=== PATIENT | male | born 1950 | race African-American/Black ===

== ENCOUNTER → 2021-01-17 | Day surgery (SDC) | payer OTHER ==
[~2021-01-17] MED LIST: TYLENOL325 MG PO
--- NOTE | ~2021-01-17 | OP ---
[facility] [address] [place] [address] OPERATIVE REPORT Name: OLI REY Room: [facility].#: [id number] Admission: 01/17/21 Attend Phys: Simone Guillermo Discharge: Date of : 54 Report #: [id number] THIS REPORT FOR: cc: Darcy Hernandez Ghaison F. DO Patterson, Jonathan D. MD ~ DATE OF SURGERY: 01/17/2021 PREOPERATIVE DIAGNOSIS: Right axillary hidradenitis suppurativa. POSTOPERATIVE DIAGNOSIS: Right axillary hidradenitis suppurativa. OPERATION: Excision of right axillary hidradenitis suppurativa, simple. SURGEON: Simone Guillermo MD ANESTHESIA: General. ESTIMATED BLOOD LOSS: Minimal. SPECIMENS: Hidradenitis suppurativa. DESCRIPTION OF PROCEDURE: After informed consent was obtained, the patient was brought to the operating room and placed supine. SCDs were placed and working, preoperative antibiotics were administered, general anesthesia was induced. The right axilla was prepped and draped in the usual sterile fashion. He had one area in the right axilla, which measured approximately 4 x 3 cm. This was grasped and excised with cautery. Dissection was carried down to the subcutaneous fat. There was an abscess cavity underneath this as well. This was drained completely. The area was irrigated with normal saline. It was packed with sterile gauze. Then, in the superior axilla, he had another 2 x 4 cm area, which was also excised completely with cautery down to healthy tissue. The area was then packed with sterile gauze. Sterile dressings were applied. COMPLICATIONS: None. DISPOSITION: The patient was taken to recovery in satisfactory condition. By: 0952 [id number] Guillermo MD /nt
[2021-01-17 07:06] LABS: HEMOGLOBIN 11.1 gm/dL (14.0-18.0); MCH 31.6 pg (26.0-34.0); MCHC 32.7 g/dL (28.0-37.0); MCV 96.6 fL (80.0-100.0); RBC 3.51 mil/uL (4.50-6.00); RDW-CV 14.9 % (10.5-14.5); WBC 5.1 thou/uL (4.0-11.0)
[2021-01-17 07:19] LABS: CALCIUM 8.7 mg/dL (8.5-10.1); CREATININE 1.3 mg/dL (0.6-1.3); POTASSIUM 3.9 mmol/L (3.5-5.1)
--- NOTE | 2021-01-17 11:48 | EKG ---
[place] [address] ELECTROCARDIOGRAM REPORT Name: ETHAN REYINALD Room: [facility]#: [id number] Admission: 01/17/21 Attend Phys: Simone Mcnally Discharge: Date of : 54 Date of Service: 01/17/21700 Report #: [id number] THIS REPORT FOR: //name// [facility] Test Date: 2021-01-17 Test Time: 07:01:53 Pat Name: OLI REY Department: Room: Gender: Precision Assembler: [facility] : 1950 Requested By: Simone Guillermo Order Number: [id number] Shanta MD: Joni Madrid Measurements Intervals [place] Rate: 90 P: 42 [place]: 187 QRS: -45 QRSD: 114 T: 12 QT: 374 QTc: 458 Interpretive Statements Sinus rhythm Left anterior fascicular block Left ventricular hypertrophy No previous ECG available for comparison Electronically Signed On 01-17-2021 11:48:35 CDT by Joni Madrid [email or web address] <ELECTRONICALLY SIGNED> By: Joni Madrid MD, [facility] 01/17/21 1148 0 0 Joni Madrid MD, [facility] /EPI
--- NOTE | 2021-01-19 19:07 | PATH ---
[address] [address] PATHOLOGY RPT PROCEDURE Name: OLI KNAPP Room: [facility].R.#: [id number] Admission: 01/17/21 Date of : 54 Discharge: Report #: [id number] Path Case #: [id number] L[facility] Accession Number: [id number] . 01 Material submitted: . axilla - RIGHT AXILLARY HIDRADENITIS. Modifiers: right . 02 Diagnosis: Skin and soft tissue "right axilla", excision: - Skin and subcutaneous tissue, with features consistent with hidradenitis suppurativa. - Negative for malignancy. (MLK:christian; 01/19/2021) QMS 01/19/2021 1833 Local . 02 Electronically signed: . Saima Kapoor MD, Pathologist NPI- [id number] . 01 Gross description: . The specimen is received in formalin, labeled "Oli Knapp R axillary hidradenitis" and consists of an unoriented irregular skin excision (4.3 x 3.0 cm, excised to a depth of 2.0 cm) which is surfaced with brown-black, hairbearing skin that displays a prominent linear depression (2.9 x 0.3 cm) that extends to the surgical margin and displays an adjacent campos-antoine well-circumscribed polypoid lesion (0.2 x 0.2 x 0.2 cm) which comes to within 0.9 cm nearest surgical margin (inked black). Sectioning reveals pale yellow dusky and focally necrotic cut surfaces. . Also received in the same container is a second unoriented irregular skin excision (5.3 x 3.0 cm, excised to a depth of 0.4 cm) which is surfaced with brown-black hairbearing and slightly raised skin. The surgical margin is inked red. Sectioning reveals unremarkable cut surfaces. Administration Manager sections are submitted in A1-A2 to include the entirety of the polypoid lesion and the nearest margin submitted in A1. (POINT LAY IRA; 01/18/2021) DKA/DKA 01/19/2021 1510 Local . 02 Pathologist provided ICD-10: L73.2 . 02 CPT . 767810 Specimen Comment: A courtesy copy of this report has been sent to [phone], [phone] Specimen Comment: [id number] Specimen Comment: Report sent to / DR BOWENS Performed at: [address] [place] [address] PATHOLOGY RPT PROCEDURE Name: OLI KNAPP Room: [facility]#: [id number] Admission: 01/17/21 Date of : 54 Discharge: Report #: [id number] Path Case #: [id number] [facility] [address], [place], [place] [id number] MD Albert Clemente MD Phone: [phone] Performed at: 02 [facility] [address], [place] [id number] MD Mickey Martinez MD Phone: [phone]
== END | disposition home or self-care (01) ==
LOC: M.SUR 06:14
PROVIDERS: ATTEND Surgery
DX: L73.2 Hidradenitis suppurativa (principal); I10 Essential (primary) hypertension; Z79.899 Other long term (current) drug therapy; Z20.822 Contact with and (suspected) exposure to COVID-19

== ENCOUNTER → 2021-02-08 | Day surgery (SDC) | payer OTHER ==
[~2021-02-08] MED LIST changes: +ACTOS 45 MG45 M2 PO; +AMARYL2 M1 PO; +BENICAR40 MG PO; +CEPHALEXIN500 MG PO; +FUROSEMIDE 20 M20 MG PO; +HYDROXYZINE HCL25 M2 PO; +KEFLEX250 MG PO; +KETOCONAZOLE 2200 MG PO; +RAYOS5 MG; +ROSUVASTATIN CA40 MG PO; +SINGULAIR 10 MG10 MG PO; +VITAMIN D; +ZETIA10 MG PO
--- NOTE | ~2021-02-08 | OP ---
[facility] [address] [place] [address] OPERATIVE REPORT Name: OLI REY Room: [facility]#: [id number] Admission: 02/08/21 Attend Phys: Simone Guillermo Discharge: Date of : 54 Report #: [id number] THIS REPORT FOR: cc: Darcy Hernandez Ghaison F. DO Patterson, Jonathan D. MD ~ DATE OF SURGERY: 02/08/2021 PREOPERATIVE DIAGNOSIS: Upper back abscess. POSTOPERATIVE DIAGNOSIS: Upper back abscess. OPERATION: Incision and drainage of upper back abscess. SURGEON: Simone Guillermo MD. ANESTHESIA: General. ESTIMATED BLOOD LOSS: Minimal. SPECIMENS: Fluid for culture and sensitivity. DESCRIPTION OF PROCEDURE: After informed consent was obtained, the patient was brought to the operating room and placed supine. SCDs were placed and working, preoperative antibiotics were administered, general anesthesia was induced. The patient was placed in the right lateral decubitus position on his bed. Area was then prepped and draped in the usual sterile fashion after anesthesia was induced. This was in the upper back really at the midline. He had a 10 cm fluctuant area and a 6 cm incision was made with cautery. Dissection was made down through the subcutaneous tissue. There was a large pus pocket. This was drained. Loculations were broken up with a clamp. The area was irrigated and it was then packed with sterile gauze. Sterile dressings were applied. COMPLICATIONS: None. DISPOSITION: The patient was taken to recovery in satisfactory condition. By: 1740 1811Simone Guillermo MD /nt
[2021-02-08 09:37] LABS: HEMATOCRIT 34.3 % (42.0-52.0); HEMOGLOBIN 11.1 gm/dL (14.0-18.0); MCH 31.6 pg (26.0-34.0); MCHC 32.5 g/dL (28.0-37.0); MCV 97.4 fL (80.0-100.0); MPV 7.2 fl. (7.2-11.1); RBC 3.52 mil/uL (4.50-6.00); RDW-CV 16.6 % (10.5-14.5); WBC 25.9 thou/uL (4.0-11.0)
[2021-02-08 09:41] LABS: CALCIUM 9.6 mg/dL (8.5-10.1); CREATININE 2.3 mg/dL (0.6-1.3); POTASSIUM 4.8 mmol/L (3.5-5.1)
== END | disposition home or self-care (01) ==
LOC: M.SUR 05:12
PROVIDERS: ATTEND Surgery
DX: L02.212 Cutaneous abscess of back [any part, except buttock and flank] (principal); Z98.890 Other specified postprocedural states; Z20.822 Contact with and (suspected) exposure to COVID-19; Z79.899 Other long term (current) drug therapy

== ENCOUNTER 2021-05-18 07:33 | Inpatient (IN) | payer OTHER ==
[~2021-05-18] VITALS: Ht 188 cm; Wt 93.0 kg
[~2021-05-18 07:33] MED LIST changes: -CEPHALEXIN500 MG PO; -KEFLEX250 MG PO
[2021-05-18 07:35] VITALS: BP 148/75
[2021-05-18 08:49] LABS: ABSOLUTE EOSINOPHILS 0.1 thou/uL (0.0-0.7); ABSOLUTE NEUTROPHILS 8.8 thou/uL (1.6-8.1); BASOPHILS 0.3 %; EOSINOPHILS 1.2 %; HEMATOCRIT 33.7 % (42.0-52.0); HEMOGLOBIN 10.6 gm/dL (14.0-18.0); LYMPHOCYTES 16.6 %; MCH 30.9 pg (26.0-34.0); MCHC 31.4 g/dL (28.0-37.0); MCV 98.4 fL (80.0-100.0); MPV 6.9 fl. (7.2-11.1); NUCLEATED RBCS 0 /100WBC; PLATELET COUNT* 410 thou/uL (150-400); POLYS 73.9 %; RBC 3.43 mil/uL (4.50-6.00); RDW-CV 15.8 % (10.5-14.5); WBC 11.9 thou/uL (4.0-11.0)
[2021-05-18 09:18] LABS: CALCIUM 9.2 mg/dL (8.5-10.1); CREATININE 1.3 mg/dL (0.6-1.3); POTASSIUM 4.7 mmol/L (3.5-5.1)
[2021-05-18 09:23] LABS: ALBUMIN 2.5 g/dL (3.4-5.0); TOTAL BILIRUBIN 0.4 mg/dL (<0.1-1.0); TOTAL PROTEIN 7.3 g/dL (6.4-8.2)
[2021-05-18 11:50] LABS: URINE BILIRUBIN NEGATIVE (Negative); URINE BLOOD NEGATIVE (Negative); URINE CLARITY CLEAR; URINE COLOR YELLOW; URINE GLUCOSE-RANDOM NEGATIVE (Negative); URINE KETONES NEGATIVE (Negative); URINE LEUKOCYTES-REFLEX NEGATIVE (Negative); URINE NITRITE-REFLEX NEGATIVE (Negative); URINE PROTEIN TRACE (Negative); URINE UROBILINOGEN 0.2 E.U./dl (0.2-1.0)
--- NOTE | 2021-05-18 12:26 | EKG ---
[place] [address] ELECTROCARDIOGRAM REPORT Name: ETHAN REYINALD Room: [place] [address] ADM [place] ..#: [id number] Admission: 05/18/21 Attend Phys: Js Strickland Discharge: Date of : 54 Date of Service: 05/18/21 0735 Report #: [id number] THIS REPORT FOR: //name// [facility] ED Test Date: 2021-05-18 Test Time: 07:35:19 Pat Name: OIL REY Department: Room: [facility] Gender: M Student Career Development Specialist: : 1950 Requested By: Andrae Barnard Order Number: [id number] MD: Alejandro Dejesus Measurements Intervals [place] Rate: 109 P: 34 [place]: 127 QRS: -39 QRSD: 106 T: 0 QT: 347 QTc: 468 Interpretive Statements Sinus tachycardia left axis Left ventricular hypertrophy Anterior Q waves, possibly due to LVH Compared to ECG 01/17/2021 07:01:53 Q waves now present Sinus rhythm no longer present Electronically Signed On 05-18-2021 12:26:07 OVER THE HORIZON TARGETING SUPERVISOR by Alejandro Dejesus [email or web address] <ELECTRONICALLY SIGNED> By: Alejandro Dejesus MD, [facility] 05/18/21 1226 0735 0735 Alejandro Dejesus MD, [facility] /EPI
[2021-05-18 15:00] VITALS: BP 133/65
[2021-05-18 15:55] VITALS: BP 109/59
[2021-05-18 19:40] VITALS: BP 118/67
[2021-05-19] VITALS: BP 103/56
[2021-05-19 04:00] VITALS: BP 120/58
[2021-05-19 08:00] VITALS: BP 147/78
[2021-05-19 08:49] LABS: ABSOLUTE EOSINOPHILS 0.3 thou/uL (0.0-0.7); ABSOLUTE LYMPHOCYTES 2.2 thou/uL (0.8-5.3); ABSOLUTE MONOCYTES 0.9 thou/uL (0.0-1.2); ABSOLUTE NEUTROPHILS 5.5 thou/uL (1.6-8.1); BASOPHILS 0.4 %; EOSINOPHILS 3.6 %; HEMATOCRIT 31.8 % (42.0-52.0); HEMOGLOBIN 10.2 gm/dL (14.0-18.0); LYMPHOCYTES 24.9 %; MCH 31.7 pg (26.0-34.0); MCHC 32.2 g/dL (28.0-37.0); MCV 98.6 fL (80.0-100.0); MONOCYTES 9.5 %; MPV 7.6 fl. (7.2-11.1); NUCLEATED RBCS 0 /100WBC; PLATELET COUNT* 351 thou/uL (150-400); POLYS 61.6 %; RBC 3.23 mil/uL (4.50-6.00); RDW-CV 15.4 % (10.5-14.5)
[2021-05-19 09:07] LABS: ALBUMIN 2.1 g/dL (3.4-5.0); CREATININE 1.3 mg/dL (0.6-1.3); POTASSIUM 4.4 mmol/L (3.5-5.1); TOTAL BILIRUBIN 0.6 mg/dL (<0.1-1.0); TOTAL PROTEIN 6.7 g/dL (6.4-8.2)
[2021-05-19 12:00] VITALS: BP 128/58
[2021-05-19 16:00] VITALS: BP 100/51
[2021-05-19 20:00] VITALS: BP 137/65
[2021-05-20] VITALS (7 sets, daily range): BP systolic 114–133; BP diastolic 62–80
[2021-05-20] MEDS ORDERED: PROAIR HFA8.5 GM INH (00:57)
[2021-05-20] MEDS ORDERED: ALLOPURINOL 10100 M3 PO (00:58)
[2021-05-20] MEDS ORDERED: NORVASC10 MG PO (00:58)
[2021-05-20] MEDS ORDERED: BUDESONIDE0.5 MG/2 M INH (01:02)
[2021-05-20] MEDS ORDERED: VITAMIN B-12100 MC1 PO (01:03)
[2021-05-20] MEDS ORDERED: CEPHALEXIN500 MG PO (01:05)
[2021-05-20] MEDS ORDERED: KEFLEX250 MG PO (01:05)
[2021-05-20 05:47] LABS: HEMATOCRIT 33.7 % (42.0-52.0); HEMOGLOBIN 10.8 gm/dL (14.0-18.0); MCH 31.2 pg (26.0-34.0); MCHC 32.1 g/dL (28.0-37.0); MCV 97.4 fL (80.0-100.0); MPV 7.3 fl. (7.2-11.1); NUCLEATED RBCS 0 /100WBC; PLATELET COUNT* 385 thou/uL (150-400); RBC 3.46 mil/uL (4.50-6.00); RDW-CV 15.6 % (10.5-14.5); WBC 8.1 thou/uL (4.0-11.0)
[2021-05-20 06:39] LABS: CALCIUM 8.4 mg/dL (8.5-10.1); CREATININE 1.7 mg/dL (0.6-1.3); POTASSIUM 4.2 mmol/L (3.5-5.1)
[2021-05-20 07:34] LABS: ABSOLUTE LYMPHOCYTES 1.3 thou/uL (0.8-5.3); ABSOLUTE MONOCYTES 0.5 thou/uL (0.0-1.2); ABSOLUTE NEUTROPHILS 6.3 thou/uL (1.6-8.1)
[2021-05-20 07:35] LABS: PLATELET ESTIMATE ADEQUATE
[2021-05-21 04:08] VITALS: BP 145/77
[2021-05-21 08:00] VITALS: BP 143/75
[2021-05-21] MEDS ORDERED: DOXYCYCLINE 10100 MG PO (08:10)
[2021-05-21] MEDS ORDERED: HUMALOG100 UNIT/1 SUBQ (08:17)
[2021-05-21 11:22] VITALS: BP 143/75
[2021-05-22 04:05] LABS: GLYCOHEMOGLOBIN (HGB A1C) 6.2 % (4.8-5.6)
== END 2021-05-21 13:00 | disposition home health service (06) | DRG 177 ==
LOC: M.ERS 07:33 → M.TBA-ER 09:36 → M.ORTHSURG 09:36
PROVIDERS: Emergency Medicine Emergency Medical Services; Internal Medicine; ADMIT Internal Medicine; ATTEND Internal Medicine
DX: U07.1 COVID-19 (principal); G93.41 Metabolic encephalopathy; J12.82 Pneumonia due to coronavirus disease 2019; R65.10 Systemic inflammatory response syndrome (SIRS) of non-infectious origin without acute organ dysfunction; N18.9 Chronic kidney disease, unspecified; E86.0 Dehydration; E11.649 Type 2 diabetes mellitus with hypoglycemia without coma; Z79.899 Other long term (current) drug therapy

== ENCOUNTER 2021-06-20 14:53 | Inpatient (IN) | payer OTHER ==
[~2021-06-20] VITALS: Ht 188 cm; Wt 83.9 kg
[~2021-06-20 14:53] MED LIST changes: +ALLOPURINOL 10100 M3 PO; +BUDESONIDE0.5 MG/2 M INH; +CEPHALEXIN500 MG PO; +DOXYCYCLINE 10100 MG PO; +HUMALOG100 UNIT/1 SUBQ; +KEFLEX250 MG PO; +NORVASC10 MG PO; +PROAIR HFA8.5 GM INH; +VITAMIN B-12100 MC1 PO
[2021-06-20 14:56] VITALS: BP 127/69
[2021-06-20 16:07] LABS: CALCIUM 9.4 mg/dL (8.5-10.1); CREATININE 1.6 mg/dL (0.6-1.3); POTASSIUM 3.2 mmol/L (3.5-5.1)
[2021-06-20 16:17] LABS: ALBUMIN 2.6 g/dL (3.4-5.0); TOTAL BILIRUBIN 5.3 mg/dL (<0.1-1.0); TOTAL PROTEIN 6.9 g/dL (6.4-8.2)
--- NOTE | 2021-06-20 16:41 | EKG ---
[place] [address] ELECTROCARDIOGRAM REPORT Name: OLI REY Room: [facility]#: [id number] Admission: 06/20/21 Attend Phys: Discharge: Date of : 54 Date of Service: 06/20/21 1504 Report #: [id number] THIS REPORT FOR: //name// [facility] ED Test Date: 2021-06-20 Test Time: 15:04:32 Pat Name: OLI REY Department: Room: Gender: Casino Shift Manager: : 1950 Requested By: Luis Alejandro Order Number: [id number] MD: Alejandro Dejesus Measurements Intervals [place] Rate: 100 P: MS: QRS: -47 QRSD: 118 T: 31 QT: 379 QTc: 489 Interpretive Statements sinus rhythm Left anterior fascicular block Left ventricular hypertrophy Artifact in lead(s) I,III,aVR,aVL Compared to ECG 05/18/2021 07:35:19 Sinus tachycardia no longer present Electronically Signed On 06-20-2021 16:41:12 SLEEVE SETTER SAFETY STITCH by Alejandro Dejesus [email or web address] <ELECTRONICALLY SIGNED> By: Alejandro Dejesus MD, [facility] 06/20/21 1641 1504 1504 Alejandro Dejesus MD, [facility] /EPI
[2021-06-20 16:48] LABS: ABSOLUTE EOSINOPHILS 0.1 thou/uL (0.0-0.7); ABSOLUTE LYMPHOCYTES 1.1 thou/uL (0.8-5.3); ABSOLUTE MONOCYTES 0.8 thou/uL (0.0-1.2); ABSOLUTE NEUTROPHILS 6.6 thou/uL (1.6-8.1); BASOPHILS 0.4 %; EOSINOPHILS 1.3 %; HEMATOCRIT 31.2 % (42.0-52.0); LYMPHOCYTES 12.2 %; MCH 30.5 pg (26.0-34.0); MCV 95.3 fL (80.0-100.0); MONOCYTES 9.6 %; MPV 10.3 fl. (7.2-11.1); NUCLEATED RBCS 0 /100WBC; POLYS 76.5 %; RBC 3.27 mil/uL (4.50-6.00); RDW-CV 15.2 % (10.5-14.5); WBC 8.6 thou/uL (4.0-11.0)
[2021-06-20 16:53] LABS: PLATELET COUNT* 5 thou/uL (150-400)
[2021-06-20 17:32] LABS: APTT 26.6 Seconds (25.0-31.3); INR 1.2; PROTIME 11.9 Seconds (9.20-11.50)
[2021-06-20 17:50] LABS: PLATELET ESTIMATE DECREASED
[2021-06-20 17:51] LABS: HEMATOCRIT 28.5 % (42.0-52.0); HEMOGLOBIN 9.3 gm/dL (14.0-18.0); MCHC 32.7 g/dL (28.0-37.0); RDW-CV 15.1 % (10.5-14.5); WBC 7.8 thou/uL (4.0-11.0)
[2021-06-20 20:12] LABS: URINE BLOOD TRACE (Negative); URINE CLARITY CLEAR; URINE COLOR DARK YELLOW; URINE GLUCOSE-RANDOM NEGATIVE (Negative); URINE KETONES TRACE (Negative); URINE LEUKOCYTES-REFLEX NEGATIVE (Negative); URINE NITRITE-REFLEX NEGATIVE (Negative); URINE PROTEIN 2+ (Negative); URINE SPECIFIC GRAVITY >= 1.030 (1.005-1.030)
[2021-06-20 20:16] LABS: URINE BILIRUBIN 3+ (Negative)
[2021-06-20 20:17] LABS: ICTOTEST (BILI CONFIRMATORY) Positive (Negative)
[2021-06-20 20:19] LABS: BACTERIA-REFLEX 1-9 Few /HPF (None Seen); CALCIUM OXALATE 0-3 Few /LPF (None Seen); CASTS None Seen /LPF (None Seen); MUCUS 0-3 Light strn/LPF (None Seen); SQUAMOUS 4-10 Moderate /LPF (0-3); URINE RBC 3-10 Few /HPF (0-2); URINE WBC-REFLEX 0-5 Rare /HPF (0-5)
[2021-06-20 20:28] LABS: YEAST-REFLEX Present (None Seen)
[2021-06-20 21:38] VITALS: BP 114/53
[2021-06-20 23:44] VITALS: BP 117/63
[2021-06-21] VITALS (38 sets, daily range): BP systolic 72–138; BP diastolic 35–105
[2021-06-21 05:29] LABS: HEMATOCRIT 24.2 % (42.0-52.0); HEMOGLOBIN 7.9 gm/dL (14.0-18.0); MCH 31.1 pg (26.0-34.0); MCHC 32.6 g/dL (28.0-37.0); MCV 95.3 fL (80.0-100.0); MPV 10.1 fl. (7.2-11.1); RBC 2.54 mil/uL (4.50-6.00); RDW-CV 15.2 % (10.5-14.5); WBC 6.2 thou/uL (4.0-11.0)
[2021-06-21 06:12] LABS: CALCIUM 8.8 mg/dL (8.5-10.1); CREATININE 1.4 mg/dL (0.6-1.3); MAGNESIUM 1.5 mg/dL (1.8-2.4); POTASSIUM 3.2 mmol/L (3.5-5.1); TOTAL BILIRUBIN 4.9 mg/dL (<0.1-1.0); TOTAL PROTEIN 5.7 g/dL (6.4-8.2)
[2021-06-21 12:21] LABS: HEMATOCRIT 28.1 % (42.0-52.0); MCH 30.4 pg (26.0-34.0); MCHC 32.1 g/dL (28.0-37.0); MCV 94.8 fL (80.0-100.0); MPV 10.8 fl. (7.2-11.1); RBC 2.97 mil/uL (4.50-6.00); RDW-CV 15.1 % (10.5-14.5); WBC 9.1 thou/uL (4.0-11.0)
[2021-06-22] VITALS (20 sets, daily range): BP systolic 95–185; BP diastolic 20–64
[2021-06-22 04:04] LABS: HEMATOCRIT 24.6 % (42.0-52.0); HEMOGLOBIN 8.1 gm/dL (14.0-18.0); MCH 31.4 pg (26.0-34.0); MPV 9.9 fl. (7.2-11.1); RBC 2.59 mil/uL (4.50-6.00); RDW-CV 15.5 % (10.5-14.5); WBC 6.9 thou/uL (4.0-11.0)
[2021-06-22 04:36] LABS: CALCIUM 8.6 mg/dL (8.5-10.1); CREATININE 1.6 mg/dL (0.6-1.3); MAGNESIUM 1.7 mg/dL (1.8-2.4); POTASSIUM 4.1 mmol/L (3.5-5.1); TOTAL BILIRUBIN 6.2 mg/dL (<0.1-1.0); TOTAL PROTEIN 5.9 g/dL (6.4-8.2)
--- NOTE | 2021-06-22 12:45 | EKG ---
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 : 1950 Requested By: Myla Correia Order Number: [id number] [place] MD: Omar Davis Measurements Intervals [place] Rate: 137 P: 22 MA: 118 QRS: -53 QRSD: 105 T: 84 QT: 302 QTc: 456 Interpretive Statements Sinus tachycardia Left anterior fascicular block Abnormal R-wave progression, late transition Left ventricular hypertrophy Compared to ECG 06/20/2021 15:04:32 Sinus rate has increased and minor ST-T changes have occurred Electronically Signed On 06-22-2021 12:45:20 SENIOR TECHNICAL SPECIALIST by Omar Davis [email or web address] <ELECTRONICALLY SIGNED> By: Omar Davis MD, [facility] 06/22/21 1245 1039 1039 Omar Davis MD, [facility] /EPI
[2021-06-23] VITALS (23 sets, daily range): BP systolic 89–155; BP diastolic 33–83
[2021-06-23 03:18] LABS: HEMATOCRIT 24.8 % (42.0-52.0); HEMOGLOBIN 8.1 gm/dL (14.0-18.0); MCH 31.4 pg (26.0-34.0); MCHC 32.6 g/dL (28.0-37.0); MPV 10.1 fl. (7.2-11.1); RBC 2.58 mil/uL (4.50-6.00); RDW-CV 15.9 % (10.5-14.5); WBC 8.5 thou/uL (4.0-11.0)
[2021-06-23 04:00] LABS: ALBUMIN 2.2 g/dL (3.4-5.0); CALCIUM 8.6 mg/dL (8.5-10.1); CREATININE 1.7 mg/dL (0.6-1.3); MAGNESIUM 2.1 mg/dL (1.8-2.4); POTASSIUM 4.4 mmol/L (3.5-5.1); TOTAL BILIRUBIN 4.5 mg/dL (<0.1-1.0); TOTAL PROTEIN 6.6 g/dL (6.4-8.2)
[2021-06-24] VITALS (13 sets, daily range): BP systolic 122–160; BP diastolic 38–118
[2021-06-24 09:15] LABS: ABSOLUTE LYMPHOCYTES 2.4 thou/uL (0.8-5.3); ABSOLUTE MONOCYTES 1.1 thou/uL (0.0-1.2); BASOPHILS 0.3 %; EOSINOPHILS 0.1 %; HEMOGLOBIN 7.5 gm/dL (14.0-18.0); LYMPHOCYTES 17.8 %; MCH 30.9 pg (26.0-34.0); MCHC 31.5 g/dL (28.0-37.0); MCV 98.1 fL (80.0-100.0); MONOCYTES 8.3 %; MPV 10.4 fl. (7.2-11.1); NUCLEATED RBCS 0 /100WBC; POLYS 73.5 %; RBC 2.44 mil/uL (4.50-6.00); RDW-CV 16.7 % (10.5-14.5); WBC 13.6 thou/uL (4.0-11.0)
[2021-06-24 09:19] LABS: PLATELET COUNT* 4 thou/uL (150-400)
--- NOTE | 2021-06-24 09:44 | CON ---
[address] [address] CONSULTATION Name: OLI REY Room: [address] [place] M.R.#: [id number] Admission: 06/20/21 Attend Phys: Myla Correia MD Discharge: Date of : 54 Report #: [id number] THIS REPORT FOR: cc: Darcy Hernandez Ghaison F. DO Elia, Manana MD ~ DATE OF CONSULTATION: 06/22/2021 REASON FOR CONSULTATION: Thrombocytopenia. REQUESTING PHYSICIAN: Dr. Correia. HISTORY OF PRESENT ILLNESS: The patient is a 70-year-old gentleman who was admitted to the hospital with altered mental status, weakness and frequent falls. The patient was brought by his daughter. Daughter was not able to wake him up and keep him upright, and he was brought to the hospital. The patient was recently hospitalized at [facility] with COVID pneumonia. He was discharged to extended care facility where he spent 2 weeks and recently returned to home 2 days ago. He is not able to give me any history. He has scratches on his face and bleeding. I am consulted for thrombocytopenia. Upon discharge, his platelets were normal. On admission, his platelet count was 5. PAST MEDICAL HISTORY: He has diabetes mellitus, hyperlipidemia. REVIEW OF SYSTEMS: Reviewing of the chart reveals essentially he is on insluin. PHYSICAL EXAMINATION: GENERAL: Confused man, not in acute distress. VITAL SIGNS: Blood pressure 110/70, heart rate 137, temperature 99.7. Patient is bleeding from scratched areas on the face and hands. Does not have large bruises. HEART: Normal S1, S2. LUNGS: Coarse. ABDOMEN: Soft. MENTAL STATUS: Awake, but confused, not able to answer any questions. LABORATORY DATA: White count 8.0, hemoglobin 10.0, platelets 5 on admission. Segs are 76%, lymphocytes 12%, monocytes 9%, 1% eosinophils. Sodium 137, potassium 4.1, creatinine 1.6. PT 11.9, INR 1.2, PTT 26.6. Today, white count 6.9, hemoglobin 8.1, platelets 4. B12 454, folate 7. 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 He was given platelets, but he has not responded to platelet transfusion well. Consider to give Solu-Medrol prior to platelet [place] [address] CONSULTATION Name: OLI REY Room: [address] [place] [facility]#: [id number] Admission: 06/20/21 Attend Phys: Myla Correia MD Discharge: Date of : 54 Report #: [id number] scheduled to receive single donor platelets. We will follow platelets very closely. I asked to review peripheral smear. There are no schistocytes, so there are no concerns for signs of TTP. Continue to transfuse platelets as needed. Solu-Medrol 150 prior to platelets. If platelets do not improve by tomorrow, we will consider IVIG. Thank you very much for allowing me to participate in care of this patient. I will follow the patient with you. <ELECTRONICALLY SIGNED> By: Nova Staton MD 06/24/21 0944 2150 0024Nova Staton MD /nt
[2021-06-24 09:45] LABS: ALBUMIN 2.6 g/dL (3.4-5.0); CALCIUM 8.9 mg/dL (8.5-10.1); CREATININE 1.8 mg/dL (0.6-1.3); POTASSIUM 4.1 mmol/L (3.5-5.1); TOTAL BILIRUBIN 1.8 mg/dL (<0.1-1.0); TOTAL PROTEIN 7.4 g/dL (6.4-8.2)
== END 2021-06-24 17:57 | disposition short-term general hospital (02) | DRG 871 ==
LOC: M.ERS 14:53 → M.TBA-ER 17:18 → M.ICU 17:18 → M.2W 20:12 → M.ICU 06-21 00:04
PROVIDERS: Family Medicine; Internal Medicine; ADMIT Internal Medicine; ATTEND Internal Medicine
PROC: 05HY33Z Insertion of Infusion Device into Upper Vein, Percutaneous Approach (ICD-10-PCS; principal; 2021-06-21)
PROC: 30233R1 Transfusion of Nonautologous Platelets into Peripheral Vein, Percutaneous Approach (ICD-10-PCS; principal; 2021-06-21)
DX: A41.9 Sepsis, unspecified organism (principal); J15.6 Pneumonia due to other Gram-negative bacteria; N17.0 Acute kidney failure with tubular necrosis; G93.41 Metabolic encephalopathy; D69.3 Immune thrombocytopenic purpura; D62 Acute posthemorrhagic anemia; T38.3X1A Poisoning by insulin and oral hypoglycemic [antidiabetic] drugs, accidental (unintentional), initial encounter; R04.0 Epistaxis; E11.649 Type 2 diabetes mellitus with hypoglycemia without coma; N18.30 Chronic kidney disease, stage 3 unspecified; E78.5 Hyperlipidemia, unspecified; E11.22 Type 2 diabetes mellitus with diabetic chronic kidney disease; D50.9 Iron deficiency anemia, unspecified; D52.9 Folate deficiency anemia, unspecified; W18.30XA Fall on same level, unspecified, initial encounter; S40.812A Abrasion of left upper arm, initial encounter; S40.811A Abrasion of right upper arm, initial encounter; S00.81XA Abrasion of other part of head, initial encounter; Z20.822 Contact with and (suspected) exposure to COVID-19; Z79.4 Long term (current) use of insulin; Z79.899 Other long term (current) drug therapy; Y93.89 Activity, other specified; Y92.89 Other specified places as the place of occurrence of the external cause; Y99.8 Other external cause status; Z87.891 Personal history of nicotine dependence; Z86.16 Personal history of COVID-19